=== PATIENT | female | born 1985 | race Caucasian/White ===

== ENCOUNTER 2016-06-28 17:49 | Emergency (ER) | payer OTHER ==
[2016-06-28 18:16] VITALS: TEMP 98
[2016-06-28] MEDS ORDERED: ONDANSETRON DISINTEGRATING 4 MG TAB PO ONE (18:16)
[2016-06-28] MEDS ORDERED: ONDANSETRON 4 MG/2 ML VIAL IVP ONE ×2 (18:34→20:45)
[2016-06-28] MEDS ORDERED: NS 1,000 ML IV ONE ×2 (19:11)
[2016-06-28] MEDS ORDERED: HYDROmorphONE/DILAUDID 1 MG/ML SYR IVP ONE (19:11)
[2016-06-28] MEDS ORDERED: FAMOTIDINE 20 MG in NS 100 ML IV ONE (19:11)
--- NOTE | 2016-06-28 19:15 | UCPHY ---
H & P Time Seen by Provider: 06/28/16 18:25 Patient Type: New HPI/ROS: HPI Vomiting and diarrhea. 30-year-old female by private vehicle. She reports that she developed nausea with vomiting and diarrhea this morning. She has had multiple episodes of watery diarrhea associated with intermittent crampy abdominal discomfort. She reports nausea with 5-6 episodes of nonbilious nonbloody vomiting. She reports that she is feeling somewhat better now. She denies any change in diet. No foreign travel. No camping. She reports she was at a social gathering on Tuesday night was around a child who apparently was vomiting. ROS: Constitutional: No fever, no chills. Fatigue. Eyes: No discharge. No changes in vision. ENT: No sore throat. No nasal congestion or rhinorrhea. Respiratory: No cough. No shortness of breath. Cardiac: No chest pain, no palpitations. Gastrointestinal: As above. Genitourinary: No hematuria. No dysuria or increased frequency with urination. Musculoskeletal: No back pain. No neck pain. No myalgias or arthralgias. Skin: No rashes. Neurological: No headache. No focal weakness or altered sensation. Past medical history: No significant past medical history. She takes spironolactone for acne. Social history: . Here with . Physical Exam: General Appearance: Alert, she appears uncomfortable. This patient is responding to questions appropriately and in full sentences. This patient appears well-hydrated and well-nourished. Eyes: Pupils equal and round no pallor or injection. No lid edema, erythema or injection. Respiratory: There are no retractions, lungs are clear to auscultation with good air movement bilaterally. Cardiovascular: Regular rate and rhythm. No murmur. Gastrointestinal: Abdomen is soft and nontender, no masses, bowel sounds are present. No focal tenderness at McBurney's point. No Freire sign. Neurological: Motor sensory function is grossly intact. Cranial nerves are normal. Gait is normal. Skin: Warm and dry, no rashes. Musculoskeletal: Neck is supple and nontender. Extremities are symmetrical. All joints range without pain or impingement. Psychiatric: No agitation. No depression. Database: EKG: Imaging: Procedures: Emergency department course: IV placed. She was started on IV normal saline with 2 L to be given over the next 1-2 hours. She was initially given 4 mg of IV Zofran, 20 mg of IV Pepcid and 0.25 mg of IV hydromorphone. 8:35 p.m., the patient has had 2 L of IV normal saline. She is now taking oral fluids. She has had no further vomiting or diarrhea in the urgent care. Repeat abdominal exam she is soft, nontender nondistended. She feels comfortable going home with her boyfriend will be driving. Follow-up and return to emergency department precautions have been discussed. I will prescribe her Zofran as well as give her a take-home pack of this medication. All of her questions were answered. She was discharged in good condition. Differential Diagnosis: The differential diagnosis on this patient includes but is not limited to food borne illness, viral gastroenteritis. Bowel obstruction, appendicitis, cholecystitis, pancreatitis, other surgical etiology unlikely. This represents a partial list of diagnoses considered. These considerations are based on history, physical exam, past history, reassessment and diagnostic testing. Smoking Status: Never smoked Constitutional: Initial Vital Signs Temperature (C) 36.6 C 06/28/16 18:14 Heart Rate 106 H 06/28/16 18:14 Respiratory Rate 18 06/28/16 18:14 Blood Pressure 131/63 H 06/28/16 18:14 O2 Sat (%) 98 06/28/16 18:14 O2 Delivery Mode Room Air Allergies/Adverse Reactions: No Known Allergies Allergy (Unverified 06/28/16 18:13) Home Medications: Medication Instructions Recorded Ondansetron Odt [Zofran Odt 4 mg 4 mg PO Q4PRN PRN #10 tab 06/28/16 (*)] Spironolactone 06/28/16 Medical Decision Making - Data Points Medications Given: Discontinued Medications Hydromorphone HCl (Dilaudid) 0.25 mg IVP EDNOW ONE Stop: 06/28/16 19:12 Last Admin: 06/28/16 19:20 Dose: 0.25 mg Sodium Chloride (Ns) 1,000 mls @ 0 mls/hr IV ONCE ONE PRN Reason: Wide Open Stop: 06/28/16 19:12 Last Admin: 06/28/16 19:15 Dose: 1,000 mls Sodium Chloride (Ns) 1,000 mls @ 0 mls/hr IV ONCE ONE PRN Reason: Wide Open Stop: 06/28/16 19:12 Last Admin: 06/28/16 20:00 Dose: 1,000 mls Famotidine 20 mg/ Sodium (Chloride) 102 mls @ 408 mls/hr IV EDNOW ONE Stop: 06/28/16 19:25 Last Admin: 06/28/16 19:30 Dose: 102 mls Ondansetron HCl (Zofran) 4 mg IVP EDNOW ONE Stop: 06/28/16 18:35 Last Admin: 06/28/16 19:00 Dose: 4 mg Ondansetron HCl (Zofran Odt 4 Mg Prepack#2) 1 btl TAKEHOME EDNOW ONE Stop: 06/28/16 19:19 Last Admin: 06/28/16 19:40 Dose: 1 btl Ondansetron HCl (Zofran) 4 mg IVP EDNOW ONE Stop: 06/28/16 20:46 Last Admin: 06/28/16 20:45 Dose: 4 mg Departure - Departure Disposition: Home, Routine, Self-Care Clinical Impression: Vomiting and diarrhea Condition: Good Instructions: Gastroenteritis (ED) Additional Instructions: Read and follow provided instructions. Follow-up with your primary care physician in 1-2 days for re-evaluation as needed. Take medication as prescribed. Return to the emergency department for vomiting and inability to keep fluids down despite medications, fever, bloody diarrhea, worsening abdominal pain or other serious concerns. Keep well hydrated, drink lots of fluids, a good fluid to drink is Gatorade mixed with water in a 1-1 dilution. Referrals: NONE *PRIMARY CARE P,. [Primary Care Provider] - As per Instructions Prescriptions: Ondansetron Odt [Zofran Odt 4 mg (*)] 4 mg PO Q4PRN PRN #10 tab PRN Reason: For Nausea & Vomiting - PQRS PQRS Measurement: Not applicable.
[2016-06-28] MEDS ORDERED: ONDANSETRON 4MG PREPACK#2 BTL TAKEHOME ONE (19:18)
[2016-06-28] MEDS ORDERED: ONDANSETRON 4 MG/2 ML VIAL ONE (20:39)
[2016-06-28 23:12] VITALS: BP 98/62; PULSE 72; RESP 14; O2SAT 96
== END 2016-06-28 21:00 | disposition home or self-care (01) ==
LOC: CED 17:49
DX: R11.10 Vomiting, unspecified (principal); R19.7 Diarrhea, unspecified
CPT/HCPCS: 96361-PO; 96365-PO; 96374-PO; 96375-PO; 96376-PO; G0463-PO; J1170; J2405